=== PATIENT | male | born 1990 | race African-American/Black ===

== ENCOUNTER 2018-04-27 18:36 | Emergency (ER) | payer BC ==
[~2018-04-27] VITALS: Ht 177.8 cm; Wt 63.5 kg
[2018-04-27] MEDS ORDERED: TOBRAMYCIN SULFA5 M1 OPHTHALMIC (19:52)
[2018-04-27] MEDS ORDERED: DOXYCYCLINE 10100 M1 PO (19:52)
[2018-04-27 20:04] VITALS: BP 161/103
== END 2018-04-27 20:04 | disposition home or self-care (01) ==
LOC: M.ERS 18:36
DX: H01.001 Unspecified blepharitis right upper eyelid (principal); H10.9 Unspecified conjunctivitis